=== PATIENT | male | born 1965 | race Hispanic/Latino ===

== ENCOUNTER 2018-02-11 11:59 | Day surgery (SDC) | payer BC, SELFPAY ==
[2018-02-11 12:12] LABS: Urine Appearance CLEAR; Urine Bilirubin NEGATIVE (NEG); Urine Blood 1+ (NEG); Urine Color YELLOW; Urine Glucose NEGATIVE (NEG); Urine Protein NEGATIVE (NEG); Urine Specific Gravity 1.025 (1.005-1.030); Urine Urobilinogen 0.2 mg/dL (0.2-1.0)
[2018-02-11 12:13] LABS: Urine Microscopic Reflex ORDER UMIC
[2018-02-11 12:20] LABS: Urine Bacteria <20 /HPF (NONE SEEN); Urine Culture Reflex Order NOT NEEDED; Urine RBC <5 /HPF (NONE SEEN)
[2018-02-11 12:24] LABS: Absolute Lymphocytes (CBC) 1.9 K/uL (0.7-4.9); Absolute Monocytes 0.5 K/uL (0.1-1.3); Absolute Neutrophil 2.1 K/uL (1.8-8.0); Basophils % 0.2 % (0-1.3); Eosinophils % 1.9 % (0-4.4); Hematocrit 46.7 % (39.6-49.0); Lymphocytes % 41.4 % (15.3-44.8); MCH 32.2 pg (27.0-35.0); MCV 94.4 fL (80-100); MPV 7.3 fL (7.6-11.3); Monocytes % 11.4 % (3.3-12.3); Protime INR 1.42; RBC Red Blood Cell Count 4.94 M/uL (4.33-5.43)
[2018-02-11 12:27] LABS: BUN Blood Urea Nitrogen 11 mg/dL (7-18); Bicarbonate 31 mmol/L (21-32); Glucose Level 93 mg/dL (74-106); Potassium 3.9 mmol/L (3.5-5.1); Sodium Level 140 mmol/L (136-145)
[2018-02-11] MEDS ORDERED: Ringers Lactate 1,000 ML IV ONE (12:48)
[2018-02-11] MEDS ORDERED: GENTAMICIN 100 MG/100 ML BAG 100 MG/100 ML BAG IV ONE (12:48)
[2018-02-11] MEDS ORDERED: MEPERIDINE HCL 25 MG/0.5 ML ONE (16:00)
[2018-02-11] MEDS ORDERED: MEPERIDINE HCL 50 MG/ML AMP ONE (16:07)
[2018-02-11] MEDS ORDERED: OXYBUTYNIN CHLORIDE 5 MG TAB ONE (17:21)
[2018-02-11] MEDS ORDERED: TRAMADOL HCL 50 MG TAB ONE (17:49)
--- NOTE | 2018-02-11 21:37 | EKG ---
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
== END 2018-02-11 17:50 | disposition home or self-care (01) ==
LOC: EDBD → OR 11:59
PROVIDERS: ATTEND Urology
PROC: 0T7C8ZZ Dilation of Bladder Neck, Via Natural or Artificial Opening Endoscopic (ICD-10-PCS; principal; 2018-02-11 12:45)
DX: N32.0 Bladder-neck obstruction (principal); N99.110 Postprocedural urethral stricture, male, meatal; I10 Essential (primary) hypertension; E03.9 Hypothyroidism, unspecified; N42.9 Disorder of prostate, unspecified
CPT/HCPCS: 36415; 80048; 81003; 81015; 85025; 85610; 85730; 87086; 87088; 93005; J1580; J2175

== ENCOUNTER 2024-08-31 01:25 | Emergency (ER) | payer BC, SELFPAY ==
[2024-08-31] MEDS ORDERED: ACETAMINOPHEN 500 MG TAB ONE (02:18)
[2024-08-31 02:32] LABS: SARS-CoV-2 Antigen CONTROL BLUE LINE VIS/BG OK; SARS-CoV-2 Antigen Rapid Res Negative (Negative)
[2024-08-31] MEDS ORDERED: NA CHLORIDE 0.9% 1,000 ML ONE (03:16)
[2024-08-31 04:05] LABS: Absolute Lymphocytes (CBC) 0.9 K/uL (0.7-4.9); Absolute Monocytes 0.5 K/uL (0.1-1.3); Absolute Neutrophil 3.5 K/uL (1.8-8.0); Basophils % 0.1 % (0-1.3); Eosinophils % 0.7 % (0-4.4); Hematocrit 43.2 % (39.6-49.0); Hemoglobin 15.1 g/dL (13.6-17.9); Lymphocytes % 18.6 % (15.3-44.8); MCV 94.3 fL (80-100); MPV 7.6 fL (7.6-11.3); Monocytes % 10.5 % (3.3-12.3); Neutrophils % 70.1 % (41.7-73.7); Platelets 145 thou/uL (152-406); RBC Red Blood Cell Count 4.58 M/uL (4.33-5.43); Red Cell Distribution Width 14.1 % (12.1-15.2)
[2024-08-31 04:14] LABS: Albumin 3.3 g/dL (3.4-5.0); Albumin/Globulin Ratio 0.8 (1.1-1.8); Anion Gap 9.6 mEq/L (5.0-15.0); Bilirubin Total 0.6 mg/dL (0.2-1.0); Globulin 4.1 g/dL (2.3-3.5); Potassium 3.6 mEq/L (3.5-5.1); Protein, Total 7.4 g/dL (6.4-8.2)
--- NOTE | 2024-08-31 05:03 | ER ---
Nurse's Notes [facility] Name: Bernardo Archuleta Age: 58 yrs Sex: Male : 1965 Arrival Date: 08/31/2024 Time: 01:25 Bed 6 Private MD: Diagnosis: Acute upper respiratory infection, unspecified Presentation: 08/31 02:15 Chief complaint: Patient states: PT STATES HE HAS BEEN COUGHING SINCE SATURDAY AND C/O br2 BILATERAL SHOULDER PAIN. Coronavirus screen: Client denies travel out of the [place] in the last 14 days. Ebola Screen: Patient denies exposure to infectious person. Initial Sepsis Screen: Does the patient meet any 2 criteria? HR > 90 bpm. Does the patient have a suspected source of infection? No. Patient's initial sepsis screen is negative. Risk Assessment: Do you want to hurt yourself or someone else? Patient reports no desire to harm self or others. Onset of symptoms was August 28, 2024. 02:15 Method Of Arrival: Ambulatory br2 02:15 Acuity: TRUNG 3 br2 Triage Assessment: 02:59 General: Appears uncomfortable, Behavior is cooperative, anxious. Pain: Complains of br2 pain in right arm, anterior aspect of left shoulder and posterior aspect of left shoulder Pain does not radiate. EENT: No signs and/or symptoms were reported regarding the EENT system. Neuro: Watson Agitation-Sedation Scale (RASS): 0 - Alert and Calm Level of Consciousness is awake, alert, Oriented to person, place, time, situation. Cardiovascular: Denies chest pain, Capillary refill < 3 seconds. Respiratory: Reports cough that is non-productive. GI: Abdomen is obese. : No signs and/or symptoms were reported regarding the genitourinary system. Derm: No signs and/or symptoms reported regarding the dermatologic system. Musculoskeletal: Capillary refill < 3 seconds, Range of motion: intact in all extremities. Historical: - Allergies: 02:59 No Known Allergies; br2 - PMHx: 02:59 Hypertensive disorder; Hypothyroidism; br2 - Immunization history:: Adult Immunizations not up to date. - Infectious Disease History:: Denies. - Social history:: Smoking status: Patient denies any tobacco usage or history of. Patient uses alcohol, occasionally. Screenin:15 [facility] ED Fall Risk Assessment (Adult) History of falling in the last 3 months, br2 including since admission No falls in past 3 months (0 pts) Confusion or Disorientation No (0 pts) Intoxicated or Sedated No (0 pts) Impaired Gait No (0 pts) Mobility Assist Device Used No (0 pt) Altered Elimination No (0 pt) Score/Fall Risk Level 0 - 2 = Low Risk Oriented to surroundings. Abuse screen: Denies threats or abuse. Denies injuries from another. Nutritional screening: No deficits noted. Tuberculosis screening: No symptoms or risk factors identified. Assessment: 02:15 Reassessment: SEE TRIAGE ASSESSMENT. br2 03:00 Reassessment: Patient and/or family updated on plan of care and expected duration. Pain br2 level reassessed. Patient is alert, oriented x 3, equal unlabored respirations, skin warm/dry/pink. Patient states feeling better. Patient states symptoms have improved. 04:27 Reassessment: Patient and/or family updated on plan of care and expected duration. Pain br2 level reassessed. Patient is alert, oriented x 3, equal unlabored respirations, skin warm/dry/pink. Patient states feeling better. Patient states symptoms have improved. Vital Signs: 02:15 BP 170 / 90; Pulse 112; Resp 18; Temp 98.6(O); Pulse Ox 94% on R/A; Weight 97.07 kg; br2 Height 5 ft. 4 in. ; 03:00 BP 133 / 85; Pulse 85; Resp 18; Temp 97.2; Pulse Ox 96% on R/A; br2 04:22 BP 128 / 79; Pulse 93; Resp 18 S; Pulse Ox 95% on R/A; br2 02:15 Body Mass Index 36.73 (97.07 kg, 162.56 cm) br2 ED Course: 01:27 Patient arrived in ED. [id number] 01:30 Inserted saline lock: 22 gauge in right antecubital area, using aseptic technique. br2 Blood collected. Flushed with 10 mL NS. 01:33 Mg Mccollum DO is Attending Physician. ms3 01:45 Flu Sent. vk 01:45 COVID swab sent to lab. Flu and/or RSV swab sent to lab. vk 01:46 SARS RAPID Sent. vk 01:55 Marta Godinez, BERNARD is Primary Nurse. br2 02:15 Patient has correct armband on for positive identification. Placed in gown. Bed in low br2 position. Call light in reach. Side rails up X 1. Provided Education on: PLAN OF CARE. 02:31 SARS RAPID Sent. vk 02:31 Flu Sent. vk 02:59 Triage completed. br2 03:50 CXR XRAY In Process Unspecified. EDMS 05:02 Keanu Moralez DO is Referral Physician. ms3 05:16 No provider procedures requiring assistance completed. br2 05:17 IV discontinued, intact, bleeding controlled, No redness/swelling at site. Pressure br2 dressing applied. Administered Medications: 02:28 Drug: Acetaminophen PO 1000 mg PO once Route: PO; br2 03:00 Follow up: Response: No adverse reaction br2 03:20 Drug: NS 0.9% IV 1000 ml IV at 1000 ml once; to be given as a bolus over 60 minutes br2 Route: IV; Rate: 1000 ml; Site: right antecubital; 04:30 Follow up: Response: No adverse reaction; IV Status: Completed infusion; IV Intake: br2 1000ml Medication: 05:17 VIS not applicable for this client. br2 Intake: 04:30 IV: 1000ml; Total: 1000ml. br2 Outcome: 05:02 Discharge ordered by . ms3 05:17 Discharged to home ambulatory, br2 05:17 Condition: good 05:17 Discharge instructions given to patient, Instructed on discharge instructions, Demonstrated understanding of instructions, follow-up care, medications, Prescriptions given X 2, 05:18 Patient left the ED. br2 Signatures: Dispatcher [employer] EDMS Mg Mccollum DO DO ms3 Monique Mcghee Vivian vk Riddle, Belinda, BERNARD RN br2
--- NOTE | 2024-08-31 05:03 | EDPHYS ---
Physician Documentation [facility] Name: Bernardo Archuleta Age: 58 yrs Sex: Male : 1965 Arrival Date: 08/31/2024 Time: :25 Bed 6 Private MD: ED Physician Mg Mccollum HPI: 08/31 02:01 This 58 yrs old Male presents to ER via Unassigned with complaints of Shoulder ms3 Pain, JOINT PAIN, Cough. 02:01 Bernardo Archuleta is a 58-year-old male who presents to the Emergency Department with ms3 complaints of a cough and body aches. The symptoms began after opening a package received last . He reports the discomfort level as a nine out of ten. Mr. Archuleta believes there might be a connection between the packages, which contained rocks, and the onset of his symptoms. He has a history of pulmonary embolism and is currently on blood thinners, which he has been taking regularly.. Historical: - Allergies: 02:59 No Known Allergies; br2 - PMHx: 02:59 Hypertensive disorder; Hypothyroidism; br2 - Immunization history:: Adult Immunizations not up to date. - Infectious Disease History:: Denies. - Social history:: Smoking status: Patient denies any tobacco usage or history of. Patient uses alcohol, occasionally. ROS: 02:01 Cardiovascular: Negative for chest pain, and palpitations. Respiratory: Negative for ms3 shortness of breath, cough, wheezing, and pleuritic chest pain, Abdomen/GI: Negative for abdominal pain, nausea, vomiting, diarrhea, and constipation, Skin: Negative for injury, rash, and discoloration, 02:01 Constitutional: Positive for body aches, Exam: 02:01 Constitutional: This is a well developed, well nourished patient who is awake, alert, ms3 and in no acute distress. 02:01 Respiratory: Lungs have equal breath sounds bilaterally, clear to auscultation and percussion. No rales, rhonchi or wheezes noted. No increased work of breathing, no retractions or nasal flaring. Abdomen/GI: Soft, non-tender, with normal bowel sounds. No distension or tympany. No guarding or rebound. No evidence of tenderness throughout. Skin: Warm, dry with normal turgor. Normal color with no rashes, no lesions, and no evidence of cellulitis. 02:01 Cardiovascular: Rate: tachycardic, Rhythm: regular, Pulses: no pulse deficits are appreciated, Heart sounds: normal, normal S1and S2, Vital Signs: 02:15 BP 170 / 90; Pulse 112; Resp 18; Temp 98.6(O); Pulse Ox 94% on R/A; Weight 97.07 kg; br2 Height 5 ft. 4 in. ; 03:00 BP 133 / 85; Pulse 85; Resp 18; Temp 97.2; Pulse Ox 96% on R/A; br2 04:22 BP 128 / 79; Pulse 93; Resp 18 S; Pulse Ox 95% on R/A; br2 02:15 Body Mass Index 36.73 (97.07 kg, 162.56 cm) br2 MDM: 01:39 Medical Screening Exam initiated ms3 02:01 Differential diagnosis: Flu vs COVID vs URI. ms3 05:03 Data reviewed: vital signs, nurses notes, lab test result(s), radiologic studies, plain ms3 films, and as a result, I will discharge patient. I considered the following discharge prescriptions or medication management in the emergency department Medications were administered in the Emergency Department. See MAR. Independent interpretation of the following test(s) in the Emergency Department X-Ray: My interpretation is CXR image reviewed by me does not reveal PNA. Historians other than the Patient: Spouse/Significant Other: Patient's . Counseling: I had a detailed discussion with the patient and/or guardian regarding the historical points, exam findings, and any diagnostic results supporting the discharge/admit diagnosis, lab results, radiology results, the need for outpatient follow up, to return to the emergency department if symptoms worsen or persist or if there are any questions or concerns that arise at home. Response to treatment: the patient's symptoms have markedly improved after treatment, and as a result, I will discharge patient. Special discussion: I discussed with the patient/guardian in detail that at this point there is no indication for admission to the hospital. It is understood, however, that if the symptoms persist or worsen the patient needs to return immediately for re-evaluation. ED course: Discussed labs and normal chest x-ray with patient. Flu and COVID-negative. White blood count within normal limits. Patient to follow-up Dr. Moralez in 2 to 3 days. Patient and his understand and agree with plan. All questions were answered. Return precautions discussed include worsening symptoms, or any other concerns. On reevaluation patient is alert and oriented x 4, no apparent distress, nontoxic-appearing, speaking full sentences, without respiratory distress.. 08/31 01:39 Order name: Flu; Complete Time: 02:35 ms3 08/31 01:39 Order name: SARS RAPID; Complete Time: 02:35 ms3 08/31 03:05 Order name: CBC with Diff; Complete Time: 04:15 ms3 08/31 03:05 Order name: CMP; Complete Time: 04:15 ms3 08/31 02:59 Order name: CXR XRAY ms3 08/31 01:39 Order name: PO challenge ms3 Administered Medications: 02:28 Drug: Acetaminophen PO 1000 mg PO once Route: PO; br2 03:00 Follow up: Response: No adverse reaction br2 03:20 Drug: NS 0.9% IV 1000 ml IV at 1000 ml once; to be given as a bolus over 60 minutes br2 Route: IV; Rate: 1000 ml; Site: right antecubital; 04:30 Follow up: Response: No adverse reaction; IV Status: Completed infusion; IV Intake: br2 1000ml Disposition Summary: 08/31/24 05:02 Discharge Ordered Notes: Location: Home ms3 Condition: Stable ms3 Diagnosis - Acute upper respiratory infection, unspecified ms3 Followup: ms3 - With: Keanu Moralez DO - When: 2 - 3 days - Reason: Recheck today's complaints Discharge Instructions: - Discharge Summary Sheet ms3 - Upper Respiratory Infection, Adult ms3 Forms: - Medication Reconciliation Form ms3 - Antibiotic Education ms3 - Prescription Opioid Use ms3 - Patient Portal Instructions ms3 - Leadership Thank You Letter ms3 - Work release form br2 Prescriptions: - albuterol sulfate 90 mcg/actuation Inhalation HFA Aerosol Inhaler - inhale 2 puff INHALATION route every 6 hours as needed for bronchospasm; ms3 administer via ventilator; 1 unit; Refills: 0, Product Selection Permitted - Claritin 10 mg Oral Tablet - take 1 tablet ORAL route once daily As needed; 30 tablet; Refills: 0, Product ms3 Selection Permitted Signatures: Dispatcher [employer] Mg Raman DO DO ms3 Jasper, Marta, RN RN br2 Corrections: (The following items were deleted from the chart) 03:05 03:05 CBC+H.LAB.BRZ ordered. EDMS EDMS 03:05 03:05 COMPREHENSIVE METABOLIC PANEL+C.LAB.BRZ ordered. EDMS EDMS
--- NOTE | 2024-08-31 06:42 | RAD REPORT ---
EXAM: XR Chest, 1 View CLINICAL HISTORY: The patient is 58 years old and is Male; COUGH TECHNIQUE: Frontal view of the chest. COMPARISON: No relevant prior studies available. FINDINGS: Lungs: Unremarkable. No consolidation. Pleural space: Unremarkable. No pneumothorax. Heart: Unremarkable. Mediastinum: Unremarkable. Normal mediastinal contour. Bones/joints: No acute findings. IMPRESSION: No acute findings in the chest. Electronically signed by: Alex Smith MD 08/31/2024 04:48 AM [facility] 8 Due to temporary technical issues with the PACS/MobileTag reporting system, reports are being stella d by the in-house radiologist without review as a courtesy to ensure prompt reporting the interpreting radiologist is fully responsible for the content of the report. Transcribed Date/Time: 08/31/2024 6:42 AM
[2024-08-31 09:27] VITALS: TEMP 97.2
[2024-08-31 09:28] VITALS: BP 128/79; O2SAT 95
== END 2024-08-31 05:18 | disposition home or self-care (01) ==
LOC: ER 01:25
DX: J06.9 Acute upper respiratory infection, unspecified (principal); Z11.52 Encounter for screening for COVID-19
CPT/HCPCS: 36415; 71045; 80053; 85025; 87804; 87811; 96360; 99284; J7030